=== PATIENT | female | born 1970 | race Caucasian/White ===

== ENCOUNTER 2016-10-17 13:35 | Observation (INO) | payer OTHER ==
[~2016-10-17] VITALS: Ht 162.6 cm; Wt 45.8 kg
--- NOTE | ~2016-10-17 | EKG ---
[address] [address] ELECTROCARDIOGRAM REPORT Name: KRIS QUAN Room #: 460-P [facility]#: [id number] Admission: 10/17/16 Attend Phys: Hugh Conway MD Discharge: Date of : 72 Report #: [id number] THIS REPORT FOR: //name// [facility] ED Test Date: 2016-10-17 Test Time: 14:50:27 Pat Name: KRIS QUAN Department: Room: [facility] Gender: F Rn Prior Authorization: [id number] : [id number] Requested By: Dino Brunson Order Number: [id number] MD: Jesus Ardon Measurements Intervals [place] Rate: 68 P: 60 MT: 124 QRS: 45 QRSD: 83 T: 53 QT: 399 QTc: 425 Interpretive Statements Sinus rhythm No significant abnormality Compared to ECG 06/11/2011 00:31:00 Sinus tachycardia no longer present Electronically Signed On 10-18-2016 16:59:15 CDT by Jesus Ardon [email or web address] <ELECTRONICALLY SIGNED> By: Jesus Ardon MD, MERGED WITH [facility] 10/18/16 1659 [id number] 49 Jesus Ardon MD, MERGED WITH [facility] /EPI
[2016-10-17 13:35] VITALS: BP 105/73
[~2016-10-17 13:35] MED LIST: ACCUNEB SO1.25 MG/1 INH; ALLOPURINOL 30300 M3 PO; DIPHENHYDRAMINE 25 MG PO; GEODON80 MG; HYDROCERIN CREA1 JAR TOP; LASIX 40 MG TAB40 M1; TOPAMAX; TOPAMAX100 MG; Tylenol 325MG Caplet PO
[2016-10-17 14:37] LABS: HEMATOCRIT 35.7 % (37.0-47.0); HEMOGLOBIN 12.1 gm/dL (12.0-15.0); MCH 31.1 pg (26.0-34.0); MCHC 33.8 g/dL (28.0-37.0); RBC 3.88 mil/uL (4.20-5.00); RDW 14.5 % (10.5-14.5)
[2016-10-17 14:41] LABS: ANION GAP 9 mmol/L (7-16); BUN 13 mg/dL (7-18); CALCIUM 7.2 mg/dL (8.5-10.1); CHLORIDE 110 mmol/L (98-107); CO2 25 mmol/L (21-32); CREATININE 0.8 mg/dL (0.6-1.0); GLUCOSE 97 mg/dL (74-106); POTASSIUM 3.4 mmol/L (3.5-5.1); SODIUM 144 mmol/L (136-145)
[2016-10-17 14:49] LABS: TROPONIN-I < 0.04 ng/mL (<0.04-0.07)
[2016-10-17 15:51] LABS: URINE BILIRUBIN NEGATIVE (Negative); URINE BLOOD NEGATIVE (Negative); URINE COLOR YELLOW; URINE GLUCOSE-RANDOM* NEGATIVE (Negative); URINE KETONES NEGATIVE (Negative); URINE LEUKOCYTES-REFLEX NEGATIVE (Negative); URINE PROTEIN (DIPSTICK) 1+ (Negative)
[2016-10-17 16:05] LABS: AMP/METHAMP Negative (Negative); BARBITURATES Negative (Negative); BENZODIAZEPINES Negative (Negative); COCAINE Negative (Negative); METHADONE Negative (Negative); OPIATES Negative (Negative); PCP Negative (Negative); THC Negative (Negative)
[2016-10-17 16:07] LABS: CASTS None Seen /LPF (None Seen); CRYSTALS None Seen /LPF (None Seen); SQUAMOUS 0-3 Few /LPF (0-3)
[2016-10-17 16:08] LABS: URINE RBC None Seen /HPF (0-2); URINE WBC-REFLEX 0-5 Rare /HPF (0-5)
[2016-10-17] MEDS ORDERED: ZETIA10 MG PO (16:37)
[2016-10-17] MEDS ORDERED: INVEGA SUS117 MG/0.7 IM (16:43)
[2016-10-17 19:03] VITALS: BP 104/58
[2016-10-17 19:17] VITALS: BP 104/58
[2016-10-17 19:24] LABS: CALCIUM 7.3 mg/dL (8.5-10.1); CREATININE 0.8 mg/dL (0.6-1.0); POTASSIUM 3.4 mmol/L (3.5-5.1)
[2016-10-17 19:25] LABS: PHOSPHORUS 3.2 mg/dL (2.5-4.9)
[2016-10-17] MEDS ORDERED: ZYPREXA 10 MG T10 MG PO (19:47)
[2016-10-17] MEDS ORDERED: REMERON15 MG PO (20:00)
[2016-10-17 20:11] VITALS: BP 100/67
[2016-10-18] VITALS (8 sets, daily range): BP systolic 81–96; BP diastolic 48–65
[2016-10-19 05:19] VITALS: BP 86/56
[2016-10-19 06:03] LABS: HEMATOCRIT 34.2 % (37.0-47.0); HEMOGLOBIN 11.6 gm/dL (12.0-15.0); MCH 30.7 pg (26.0-34.0); MCHC 33.8 g/dL (28.0-37.0); MCV 90.9 fL (80.0-100.0); RBC 3.76 mil/uL (4.20-5.00); RDW 14.4 % (10.5-14.5); WBC 5.5 thou/uL (4.0-11.0)
[2016-10-19 06:16] LABS: ALBUMIN 3.2 g/dL (3.4-5.0); CALCIUM 8.7 mg/dL (8.5-10.1); CREATININE 0.7 mg/dL (0.6-1.0); POTASSIUM 3.9 mmol/L (3.5-5.1)
[2016-10-19 08:46] VITALS: BP 87/52
[2016-10-19 11:48] VITALS: BP 81/48; BP 82/48
[2016-10-19] MEDS ORDERED: KEPPRA 500 MG500 M2 PO (14:35)
[2016-10-19 14:57] VITALS: BP 81/48
== END 2016-10-19 17:11 | disposition home or self-care (01) ==
LOC: ER 13:35 → EROBS 17:08 → 4W 17:08
PROVIDERS: Emergency Medicine; Family Medicine; Hospitalist
DX: R56.9 Unspecified convulsions (principal); F20.0 Paranoid schizophrenia; I34.0 Nonrheumatic mitral (valve) insufficiency

== ENCOUNTER → 2018-01-25 | Outpatient (CLI) | payer OTHER ==
[~2018-01-25] MED LIST changes: +INVEGA SUS117 MG/0.7 IM; +KEPPRA 500 MG500 M2 PO; +REMERON15 MG PO; +ZETIA10 MG PO; +ZYPREXA 10 MG T10 MG PO
== END ==
LOC: RAD 04:51
DX: Z12.31 Encounter for screening mammogram for malignant neoplasm of breast (principal)

== ENCOUNTER → 2019-03-20 | Outpatient (CLI) | payer OTHER | LOC: BC 08:14 | DX: Z12.31 Encounter for screening mammogram for malignant neoplasm of breast (principal) ==

== ENCOUNTER → 2019-04-09 | Outpatient (CLI) | payer OTHER | LOC: RAD 13:22 | DX: N63.10 Unspecified lump in the right breast, unspecified quadrant (principal); R92.2 Inconclusive mammogram ==

== ENCOUNTER 2019-05-26 22:11 | Emergency (ER) | payer OTHER ==
[~2019-05-26] VITALS: Ht 167.6 cm; Wt 104.3 kg
[2019-05-26] MEDS ORDERED: ABILIFY 5 MG TAB5 M1 PO (22:21)
[2019-05-26] MEDS ORDERED: LEVO-T25 MCG PO (22:21)
[2019-05-26] MEDS ORDERED: ARISTADA882 MG/3.2 IM (22:21)
[2019-05-26 23:00] LABS: URINE BILIRUBIN NEGATIVE (Negative); URINE BLOOD TRACE (Negative); URINE CLARITY CLEAR; URINE COLOR YELLOW; URINE GLUCOSE-RANDOM* NEGATIVE (Negative); URINE KETONES TRACE (Negative); URINE NITRITE-REFLEX NEGATIVE (Negative); URINE PROTEIN (DIPSTICK) TRACE (Negative); URINE SPECIFIC GRAVITY >= 1.030 (1.005-1.035); URINE UROBILINOGEN 0.2 E.U./dl (0.2-1.0)
[2019-05-26 23:12] LABS: URINE LEUKOCYTES-REFLEX 2+ (Negative)
[2019-05-26 23:19] LABS: CASTS None Seen /LPF (None Seen); CRYSTALS None Seen /LPF (None Seen); SQUAMOUS 4-10 Moderate /LPF (0-3); URINE WBC-REFLEX >25 Many /HPF (0-5)
[2019-05-26 23:20] LABS: BACTERIA-REFLEX 1-9 Few /HPF (None Seen); URINE RBC 0-2 Rare /HPF (0-2)
[2019-05-26] MEDS ORDERED: KEFLEX500 M1 PO (23:22)
[2019-05-26 23:32] VITALS: BP 95/69
== END 2019-05-26 23:41 | disposition home or self-care (01) ==
LOC: ER 22:11
PROVIDERS: Emergency Medicine
DX: N39.0 Urinary tract infection, site not specified (principal); Z79.899 Other long term (current) drug therapy; Z88.0 Allergy status to penicillin